=== PATIENT | male | born 1965 | race Caucasian/White ===

== ENCOUNTER → 2016-10-10 | Day surgery (SDC) | payer OTHER ==
--- NOTE | 2016-10-09 16:00 | History & Physical Pre-Op ---
General Information and HPI History of Present Illness: patient presents for right inguinal hernia repair. he noted pain and swelling in his right groin for about 1 month. There is no change to his bowel function. Allergies/Medications Allergies: Coded Allergies: Penicillins (10/07/16) Past History Medical History Gastrointestinal: GERD Surgical History Pertinent Surgical History: arthroscopy Past Family/Social History Psychosocial History Smoking Status: Never Smoked ETOH Use: occasional use Review of Systems Review of Systems: Patient reports no fatigue, no fever, no night sweats, no significant weight gain, no significant weight loss, and no exercise intolerance. He reports no abnormal moles, no jaundice, no hives, no eczema, and no rashes. He reports no dry eyes, no irritation, no vision change, and no discharge. He reports no swollen glands and no neck stiffness. He reports no cough, no wheezing, no shortness of breath, and no coughing up blood. He reports no chest pain, no arm pain on exertion, no shortness of breath when walking, no shortness of breath when lying down, no palpitations, and no known heart murmur. He reports normal appetite, no abdominal pain, no vomiting, no vomiting blood, no bloating, no diarrhea, no belching, no constipation, no regurgitation, and no rectal bleeding. He reports no incontinence, no difficulty urinating, no hematuria, and no increased frequency. He reports no muscle aches, no muscle weakness, no arthralgias/joint pain, and no back pain. Exam & Diagnostic Data Physical Exam: Patient is a 50-year-old male. Constitutional: General Appearance: healthy-appearing, well-nourished, and well- developed. Level of Distress: no acute distress. Ambulation: ambulating normally. Head: Head: normocephalic and atraumatic. Neck: Neck: supple, trachea midline, no masses, and full range of motion. Thyroid: no enlargement or nodules and non-tender. Lymph Nodes: no cervical LAD, supraclavicular LAD, axillary LAD, or inguinal LAD. Cardiovascular: Heart Auscultation: normal S1 and S2; no murmurs, rubs, or gallops; and regular rate and rhythm. Lungs: Respiratory effort: no dyspnea. Percussion: no dullness, flatness, or hyperresonance. Auscultation: no wheezing, rales/crackles, or rhonchi and breath sounds normal, good air movement, and clear to auscultation. Back: Thoracolumbar Appearance: normal curvature. Abdomen: Inspection and Palpation: no tenderness, guarding, masses, rebound tenderness, or CVA tenderness and soft and non-distended. Bowel Sounds: normal. Liver: non-tender and no hepatomegaly. Spleen: non-tender and no splenomegaly. Hernia: inguinal (reducible right). Skin: Inspection and palpation: no rash, lesions, ulcer, induration, nodules, jaundice, or abnormal nevi and good turgor. Musculoskeletal:: Extremities: no cyanosis, edema, varicosities, or palpable cord. Motor Strength and Tone: normal tone and motor strength. Joints, Bones, and Muscles: no contractures, malalignment, tenderness, or bony abnormalities and normal movement of all extremities. Psychiatric: Insight: good judgement and insight. Mental Status: normal mood and affect and active and alert. Orientation: to time, place, and person. Memory: recent memory normal and remote memory normal. Assessment/Plan Assessment/Plan: Right inguinal hernia - recommend laparoscopic repair K40.90: Unilateral inguinal hernia, without obstruction or gangrene, not specified as recurrent Discussion Notes Discussed laparoscopic preperitoneal hernia repair with mesh, the need for general anesthesia to perform it and the outpatient nature of surgery. Discussed the outcomes of surgery including 3-5% recurrence rate, 1% infection and bleeding risk. Discussed the permanent nature of mesh for repair and need for removal if infection occurs. Discussed the small risk of testicular vessel injury and vas deferens injury (males). As Ranked By This Provider Problem List: 1. Inguinal hernia
[~2016-10-10] VITALS: Ht 180.3 cm; Wt 81.6 kg
--- NOTE | 2016-10-10 13:46 | Operative Report ---
Operative/Inv Procedure Report Surgery Date: 10/10/16 Name of Procedure: Laparoscopic right inguinal hernia repair Pre-Operative Diagnosis: Right inguinal hernia Post-Operative Diagnosis: Same Estimated Blood Loss: scant Surgeon/[employer] Executive Director: MIRTA GARCIA,JODIE Estrada/Karyn ALMENDAREZ Anesthesia: general endotracheal tube Implants: Parietex mesh Operative/Procedure Note Note: After consent is brought to the operating late supine. Gen. anesthesia was obtained and his abdomen was prepped and draped. Skin below the umbilicus was anesthetized with local anesthesia and a transverse incision made sharply. We dissected down to the right-sided rectus fascia and incised transversely. Stay sutures were placed. The rectus abdominis muscles retracted laterally and a plane behind it developed with a peanut. The balloon was then placed to the level of pubis and inflated under direct vision the camera. It was then deflated and replaced with a blunt [place] port. Gas was instilled. 2, 5 mm ports were placed in midline, after local anesthesia was instilled under direct vision the camera. Began dissection the pubis and delineated Harry's ligament. There is a small direct hernia. Within dissected laterally and developed the iliopubic tract. There is a large indirect hernia and the contents were delivered. There is both cord lipoma and indirect sac. Once the dissection was completed a piece of Parietex mesh was placed into the cavity. The mesh was placed around the cord structures re-create the internal ring and cover the femoral and direct spaces. Once the mesh was in proper position the gas was allowed to escape on maintaining proper orientation of it. The ports were delivered and fascia closed with 0 Vicryl suture. Skin is closed with 4-0 Vicryl. Sterile dressings were applied. Sponge and needle counts are correct CC: TOM GARCIA,ALBERTO Schaffer
== END ==
LOC: STS 01:49
DX: K40.90 Unilateral inguinal hernia, without obstruction or gangrene, not specified as recurrent (principal)
CPT/HCPCS: C1781; J1100; J2250; J2405